=== PATIENT | female | born 1975 | race African-American/Black ===

== ENCOUNTER 2016-11-11 17:46 | Emergency (ER) | payer OTHER ==
[2016-11-11 19:00] LABS: BILIRUBIN NEGATIVE (NEGATIVE); BLOOD NEGATIVE Ery/uL (NEGATIVE); CLARITY HAZY (CLEAR); COLOR YELLOW (YELLOW); GLUCOSE (U) NORMAL (NORMAL); KETONE (U) NEGATIVE (NEGATIVE); LEUKOCYTES NEGATIVE Leu/uL (NEGATIVE); NITRITE NEGATIVE (NEGATIVE); PROTEIN NEGATIVE (NEGATIVE); UROBILINOGEN 0.2 mg/dL (0.2-1.0)
[2016-11-11 19:13] LABS: AMYLASE 101 U/L (28-100); LIPASE 43 U/L (13-60)
[2016-11-11 19:17] LABS: BASOPHIL 0.8 % (0-2); EOSINOPHIL 3.7 % (0-5); HCT 36.1 % (37.0-47.0); HGB 11.5 g/dl (12.5-16.0); LYMPHOCYTE 34.7 % (15-48); MCH 25.5 pg (25.0-31.0); MCHC 31.9 g/dL (32.0-36.0); MONOCYTE 7.9 % (0-12); MPV 10.4 fL (6.0-9.5); NEUTROPHIL 52.9 % (41-80); PLT 264 K/uL (150-400); RBC 4.51 M/uL (4.20-5.40); RDW 14.7 % (11.5-14.0); WBC 9.1 K/uL (4.0-10.5)
[2016-11-11 19:57] LABS: ALBUMIN 4.2 g/dL (3.5-5.0); BILIRUBIN - TOTAL 0.2 mg/dL (0.1-1.0); CREATININE 0.8 mg/dL (0.5-1.0); GLOBULIN (CALCULATION) 2.8 g/dL (2.2-4.2); POTASSIUM 4.1 mmol/L (3.5-5.1)
== END 2016-11-11 22:25 | disposition home or self-care (01) ==
LOC: FER 17:46
PROVIDERS: Emergency Medicine; Nurse Practitioner
DX: R10.84 Generalized abdominal pain (principal); R11.0 Nausea; Z87.19 Personal history of other diseases of the digestive system; Z88.0 Allergy status to penicillin; Z88.5 Allergy status to narcotic agent; Z88.8 Allergy status to other drugs, medicaments and biological substances; Z91.018 Allergy to other foods
CPT/HCPCS: 36415; 80053; 81003; 82150; 83690; 85025; Q9967